=== PATIENT | female | born 1975 | race Two or more races ===

== ENCOUNTER 2021-01-19 05:15 | Day surgery (SDC) | payer OTHER ==
[~2021-01-19 05:15] MED LIST: SYNTHROID100 MCG PO
== END 2021-01-19 19:13 ==
LOC: CIR.AMB 05:15
PROVIDERS: ATTEND Obstetrics & Gynecology
DX: N89.0 Mild vaginal dysplasia (principal); A63.0 Anogenital (venereal) warts; Z20.822 Contact with and (suspected) exposure to COVID-19